=== PATIENT | female | born 1995 | race Two or more races ===

== ENCOUNTER 2018-05-15 07:17 | Outpatient (CLI) | payer OTHER ==
[~2018-05-15 07:17] MED LIST: ACIPHEX20 MG PO
== END 2018-05-15 07:21 | disposition home or self-care (01) ==
LOC: SONOGRAMA 07:17
DX: E04.1 Nontoxic single thyroid nodule (principal)

== ENCOUNTER 2019-10-01 08:48 | Outpatient (CLI) | payer OTHER | END 2019-10-01 08:54 | disposition home or self-care (01) | LOC: SONOGRAMA 08:48 | DX: E04.2 Nontoxic multinodular goiter (principal) ==

== ENCOUNTER 2021-10-05 08:24 | Outpatient (CLI) | payer OTHER | END 2021-10-05 08:28 | disposition home or self-care (01) | LOC: SONOGRAMA 08:24 | PROVIDERS: ATTEND Pathology Anatomic Pathology & Clinical Pathology | DX: E04.2 Nontoxic multinodular goiter (principal) ==